=== PATIENT | female | born 1970 ===

== ENCOUNTER 2019-03-27 06:50 | Day surgery (SDC) | payer OTHER ==
[~2019-03-27 06:50] MED LIST: SYNTHROID50 MCG PO
== END 2019-03-27 17:55 | disposition home or self-care (01) ==
LOC: CIR.AMB 06:50
PROVIDERS: Plastic Surgery; Surgery
PROC: 0HRV0JZ Replacement of Bilateral Breast with Synthetic Substitute, Open Approach (ICD-10-PCS; 2019-03-27)
PROC: 0HWU0YZ Revision of Other Device in Left Breast, Open Approach (ICD-10-PCS; 2019-03-27)
PROC: 0HWT0YZ Revision of Other Device in Right Breast, Open Approach (ICD-10-PCS; 2019-03-27)
PROC: 0HPU0JZ Removal of Synthetic Substitute from Left Breast, Open Approach (ICD-10-PCS; principal; 2019-03-27 16:00)
PROC: 0HPT0JZ Removal of Synthetic Substitute from Right Breast, Open Approach (ICD-10-PCS; 2019-03-27 16:00)
DX: N64.52 Nipple discharge (principal); T85.44XA Capsular contracture of breast implant, initial encounter; T85.898A Other specified complication of other internal prosthetic devices, implants and grafts, initial encounter

== ENCOUNTER 2020-03-24 14:04 | Outpatient (CLI) | payer OTHER | END 2020-03-25 10:15 | disposition home or self-care (01) | LOC: PPH VACUNA 14:04 | DX: Z23 Encounter for immunization (principal) ==

== ENCOUNTER 2020-04-29 13:21 | Emergency (ER) | payer OTHER ==
[~2020-04-29] VITALS: Ht 172.7 cm; Wt 80.7 kg
[2020-04-29] MEDS ORDERED: PEPCID AC20 MG PO (15:24)
[2020-04-29] MEDS ORDERED: AMOX-CLAV 875-1 EACH PO (15:24)
[2020-04-29] MEDS ORDERED: CELECOXIB100 MG PO (15:24)
[2020-04-29] MEDS ORDERED: INTESTINEX680 M1 PO (15:24)
[2020-04-29] MEDS ORDERED: PERCOCET 5-3251 EACH PO (15:24)
== END 2020-04-29 15:33 | disposition home or self-care (01) ==
LOC: ER 13:21
DX: S62.635B Displaced fracture of distal phalanx of left ring finger, initial encounter for open fracture (principal); W23.0XXA Caught, crushed, jammed, or pinched between moving objects, initial encounter; Y93.89 Activity, other specified; Y92.89 Other specified places as the place of occurrence of the external cause; Y99.8 Other external cause status

== ENCOUNTER → 2020-06-03 | Outpatient (CLI) | payer OTHER ==
[~2020-06-03] MED LIST changes: +AMOX-CLAV 875-1 EACH PO; +CELECOXIB100 MG PO; +INTESTINEX680 M1 PO; +PEPCID AC20 MG PO; +PERCOCET 5-3251 EACH PO
== END | disposition home or self-care (01) ==
LOC: TOM 08:43
PROVIDERS: ATTEND Specialist
DX: S02.2XXA Fracture of nasal bones, initial encounter for closed fracture (principal); S06.890A Other specified intracranial injury without loss of consciousness, initial encounter; S06.5X0A Traumatic subdural hemorrhage without loss of consciousness, initial encounter; G93.89 Other specified disorders of brain